=== PATIENT | female | born 1980 | race Asian ===

== ENCOUNTER → 2018-04-18 | Outpatient (CLI) | payer OTHER | LOC: LAB 13:47 → LAB SHORT 13:47 | PROVIDERS: Physician Assistant | DX: Z01.419 Encounter for gynecological examination (general) (routine) without abnormal findings (principal) | CPT/HCPCS: 87624; 87625; G0145 ==

== ENCOUNTER → 2018-05-11 | Outpatient (CLI) | payer OTHER | END | disposition home or self-care (01) | LOC: LAB SHORT 13:47 → PLD 13:47 | DX: R87.613 High grade squamous intraepithelial lesion on cytologic smear of cervix (HGSIL) (principal); R87.810 Cervical high risk human papillomavirus (HPV) DNA test positive | CPT/HCPCS: 88305 ==

== ENCOUNTER → 2018-06-22 | Outpatient (CLI) | payer OTHER | END | disposition home or self-care (01) | LOC: LAB SHORT 14:16 → PLD 14:16 | DX: D06.9 Carcinoma in situ of cervix, unspecified (principal); R87.810 Cervical high risk human papillomavirus (HPV) DNA test positive | CPT/HCPCS: 88307 ==

== ENCOUNTER → 2018-12-13 | Outpatient (CLI) | payer OTHER | END | disposition home or self-care (01) | LOC: LAB EV 10:45 → LAB SHORT 10:45 | DX: L72.9 Follicular cyst of the skin and subcutaneous tissue, unspecified (principal) | CPT/HCPCS: 87070; 87075; 87077; 87147; 87186; 87205 ==

== ENCOUNTER → 2019-01-01 | Outpatient (CLI) | payer OTHER ==
[2019-01-03 16:06] LABS: HPV 16 Positive (Negative); HPV 18 Negative (Negative); HPV OTHER HR TYPES Negative (Negative)
== END ==
LOC: LAB SHORT 10:30 → LAB 10:30
PROVIDERS: Obstetrics & Gynecology
DX: R87.613 High grade squamous intraepithelial lesion on cytologic smear of cervix (HGSIL) (principal); R87.810 Cervical high risk human papillomavirus (HPV) DNA test positive
CPT/HCPCS: 87624; 87625; 88142

== ENCOUNTER 2019-02-25 05:50 | Day surgery (SDC) | payer OTHER ==
[~2019-02-25] VITALS: Ht 160 cm; Wt 53.0 kg
--- NOTE | 2019-02-25 06:50 | NUR ---
Ambulatory in Day Surgery. History, Chart, Medications and Allergies reviewed before start of procedure. Lungs clear T/O to Auscultation. Surgical site prepped with 2% Chlorhexidine cloth wipe. Patient confirms NPO status and agrees with scheduled surgery. Pre-Op teaching done. Pt verbalizes understanding. Patient reports completing Chlorhexadine shower X2 prior to admission to hospital.
--- NOTE | 2019-02-25 16:37 | NUR ---
POST OP: REPORT RECEIVED FROM CLINICAL [employer]AL[employer] ASSURANCE ASSOCIATE. PT TO UNIT AT ABOUT 0940. UPON ASSESSMENT PT IS IN NO VISABLE DISTRESS, A/0, VSS. SURGICAL SITES WNL. WILL CTM.
--- NOTE | 2019-02-25 17:08 | NUR ---
SUMMARY: NO ACUTE CHANGE SINCE RECEIVED PT POST OP. VSS, A/O. PT ABLE TO GET UP TO CHAIR, DID HAVE SOME NAUSEA, BUT RESLOVED WITH MED. TAKING IN PO CURRENTLY. SURGICAL SITES WNL, SCANT BLEED VAGINALY. PAIN SEEMS TO BE MANAGED WELL. WILL CTM AND REPORT TO NOC RN
[2019-02-26 04:47] LABS: BASOPHILS ABSOLUTE AUTO 0.01 K/mm3 (0.00-0.23); BASOPHILS PERCENT AUTO 0 % (0-2); EOSINOPHILS PERCENT AUTO 0 % (0-6); Hematocrit 24.3 % (33.0-51.0); Hemoglobin 7.6 g/dL (11.5-16.0); IMMATURE GRAN ABSOLUTE AUTO 0.04 K/mm3 (0.00-0.10); IMMATURE GRAN PERCENT AUTO 0 % (0-1); LYMPHOCYTES ABSOLUTE AUTO 1.69 K/mm3 (0.84-5.20); LYMPHOCYTES PERCENT AUTO 16 % (21-46); MONOCYTES ABSOLUTE AUTO 0.91 K/mm3 (0.16-1.47); MONOCYTES PERCENT AUTO 8 % (4-13); Mean Corpuscular HGB 27.9 pg (26.0-34.0); Mean Corpuscular HGB Conc 31.3 g/dL (31.5-36.5); Mean Corpuscular Volume 89 fL (80-100); Mean Platelet Volume 10.6 fL (9.1-12.4); NEUTROPHILS ABSOLUTE AUTO 8.16 K/mm3 (1.96-9.15); NEUTROPHILS PERCENT AUTO 76 % (41-73); Platelet Count 214 K/mm3 (150-400); RDW Coefficient Variation 13.1 % (11.7-14.2); RDW Standard Deviation 42.7 fL (35.1-46.3); Red Blood Cell Count 2.72 M/mm3 (3.80-5.20); White Blood Cell Count 10.81 K/mm3 (4.00-11.30)
--- NOTE | 2019-02-26 05:30 | NUR ---
SHIFT SUMMARY LYING IN SEMI FOWLERS WITH EYES CLOSED. HAS BEEN MEDICATED FOR PAIN X2 THIS SHIFT. INDEPENDENT IN ROOM. DENIES FURTHER NEEDS AT THIS TIME. SAFETY MEASURES IN PLACE. WILL GIVE HANF OFF TO ONCOMING SHIFT USING SBAR.
--- NOTE | 2019-02-26 10:53 | NUR ---
02/26/19 1053 Christine Colunga VERIFICATIONS: EDIT CHART.
[2019-02-26] MEDS ORDERED: HYDR1TAB94 PO (12:52)
[2019-02-26] MEDS ORDERED: IBUP800 PO (12:53)
--- NOTE | 2019-02-26 15:17 | NUR ---
DISCHARGE: PACKET PRINTED AND PT EDUCATED BY BRISEIDA CACERES RN. PT LEFT UNIT VIA WHEELCHAIR WITH JOSE DANIEL JARVISA AND AT ABOUT 1430
== END 2019-02-26 14:44 | disposition home or self-care (01) ==
LOC: ORSCMMR 05:50 → ORD 07:30 → SURS 10:39 → ORSCMMR 02-26 14:44
PROVIDERS: Obstetrics & Gynecology
PROC: 0UT9FZZ Resection of Uterus, Via Natural or Artificial Opening With Percutaneous Endoscopic Assistance (ICD-10-PCS; principal; 2019-02-25 07:30)
PROC: 0UT7FZZ Resection of Bilateral Fallopian Tubes, Via Natural or Artificial Opening With Percutaneous Endoscopic Assistance (ICD-10-PCS; principal; 2019-02-25 07:30)
PROC: 0UT1FZZ Resection of Left Ovary, Via Natural or Artificial Opening With Percutaneous Endoscopic Assistance (ICD-10-PCS; principal; 2019-02-25 07:30)
DX: R87.613 High grade squamous intraepithelial lesion on cytologic smear of cervix (HGSIL) (principal); R87.810 Cervical high risk human papillomavirus (HPV) DNA test positive
CPT/HCPCS: 36415; 85025; 88309; A9270-GY; C1729; J0171; J0690; J1100; J1885; J2250; J2405; J2704; J3010; J7120

== ENCOUNTER → 2020-05-01 | Outpatient (CLI) | payer SELFPAY ==
[~2020-05-01] MED LIST: HYDR1TAB94 PO; IBUP800 PO
[2020-05-05 15:10] LABS: HPV 16 Negative (Negative); HPV 18 Negative (Negative); HPV OTHER HR TYPES Negative (Negative)
== END | disposition home or self-care (01) ==
LOC: LAB 11:30 → LAB SHORT 11:30
PROVIDERS: Obstetrics & Gynecology
DX: Z01.419 Encounter for gynecological examination (general) (routine) without abnormal findings (principal)
CPT/HCPCS: 87624; G0123

== ENCOUNTER → 2021-05-03 | Outpatient (CLI) | payer BC ==
[2021-05-05 12:10] LABS: HPV 16 Negative (Negative); HPV 18 Negative (Negative); HPV OTHER HR TYPES Negative (Negative)
== END | disposition home or self-care (01) ==
LOC: LAB 10:06 → LAB SHORT 10:06
PROVIDERS: Family Medicine
DX: Z01.419 Encounter for gynecological examination (general) (routine) without abnormal findings (principal)
CPT/HCPCS: 87624; G0123